=== PATIENT | male | born 1965 | race Asian ===

== ENCOUNTER 2017-01-19 09:15 | Inpatient (IN) | payer OTHER ==
--- NOTE | 2017-01-18 20:18 | NUR ---
SPOKE WITH DR MICHAEL PERDOMO VIA PHONE. REPORTED A CRITICAL VALUE OF TROPONIN. NO NEW ORDERS MADE. Addendum: 01/20/17 at 0147 by Curtis Nunez RN WRONG DATE. CORRECTION 01/19/17 AT 2018
[~2017-01-19] VITALS: Ht 180.3 cm; Wt 78.9 kg
[~2017-01-19 09:15] MED LIST: ASPI81CT89 PO; ATOR20TA PO; CARV12.52 PO; CEFT1PDS43 IV; FURO-572 PO; GLIP5TAB4 PO; INSU100S45 SUBQ; MAGN400T11 PO; MIRT15TA PO; SACC250C1 PO; SITA25TA3 PO; SPIR25TA PO; ZOLP10TA1 PO; [UNRECOGNIZED DRUG - CODE] PO
[2017-01-19 09:32] VITALS: BP 153/87
--- NOTE | 2017-01-19 09:49 | NUR ---
TO CXR VIA WHEEL CHAIR
[2017-01-19 10:06] LABS: BASOPHILS # (AUTO) 0.1 K/uL (0.00-0.22); BASOPHILS % (AUTO) 1.2 % (0.0-2.0); EOSINOPHILS # (AUTO) 0.5 K/uL (0-0.4); HEMATOCRIT 40.5 % (36-52); HEMOGLOBIN 13.4 g/dL (12.0-18.0); LYMPHOCYTES # (AUTO) 1.6 K/uL (2.0-11.5); LYMPHOCYTES % (AUTO) 14.8 % (20.5-51.1); MEAN CORPUSCULAR HEMOGLOBIN 28 pg (27-31); MEAN CORPUSCULAR HGB CONC 33 g/dL (33-37); MEAN CORPUSCULAR VOLUME 85 fL (80-94); MONOCYTES % (AUTO) 9.3 % (1.7-9.3); NEUTROPHILS # (AUTO) 7.5 K/uL (1.8-7.7); NEUTROPHILS % (AUTO) 69.7 % (42.2-75.2); PLATELET COUNT (AUTO) 252 K/uL (140-450); RED BLOOD CELL COUNT(AUTO) 4.76 MIL/uL (4.20-6.10); RED CELL DISTRIBUTION WIDTH 13.7 % (11.6-13.7); WHITE BLOOD COUNT (AUTO) 10.7 K/uL (4.8-10.8)
--- NOTE | 2017-01-19 10:10 | NUR ---
51/M BIB HERE FOR C/O CHRONIC INTERMITTENT SWELLING AND SOB X 3 DAYS. WORSENING LAST NIGHT. HX CAD, KIDNEY FAILURE STAGE 2-3, HTN, DM. PT HAS INTERNAL CARDIAC DEFIB. PT ON RX LASIX, HYDRALAZINE, ASPIRIN, CARVEDILOL, ASTORVASTATIN, INSULIN SLIDING SCALE. PT APPEARS PALEM WITH GENERALIZED WEAKNES. PT AAOX4. ER MD MADE AWARE. IV PLACED IN TRAIGE.
[2017-01-19 10:31] LABS: PARTIAL THROMBOPLASTIN TIME 28.5 secs (22-35.6); PROTHROMBIN TIME 9.8 secs (10.8-13.4)
--- NOTE | 2017-01-19 10:33 | NUR ---
Patient being evaluated by physician at bedside.
[2017-01-19] MEDS ORDERED: ALBUTEROL SULFATE/IPRATROPIU 3 ML SOL IH ONE (10:50)
[2017-01-19 10:51] LABS: ANION GAP 13.2 (8-16); CALCIUM 8.6 mg/dL (8.5-10.1); CARBON DIOXIDE 24.8 mmol/L (21-32)
[2017-01-19 10:53] LABS: ALBUMIN 2.6 g/dL (3.4-5.0); CREATININE 3.8 mg/dL (0.6-1.3); TOTAL BILIRUBIN 0.3 mg/dL (0.0-1.0); TOTAL PROTEIN, SERUM 6.5 g/dL (6.4-8.2)
--- NOTE | 2017-01-19 11:04 | NUR ---
RECEIVED CALL FROM LAB, TROPONIN 0.129. ER MD MADE AWARE. NEW ORDERS TO FOLLOW. PT FOR ADMIT.
[2017-01-19 11:12] LABS: TOTAL BILIRUBIN 0.3 mg/dL (0.0-1.0)
[2017-01-19 11:13] LABS: BILIRUBIN,DIRECT 0.1 mg/dL (0.0-0.3)
[2017-01-19 11:14] LABS: ALBUMIN 2.7 g/dL (3.4-5.0); TOTAL PROTEIN, SERUM 6.8 g/dL (6.4-8.2)
[2017-01-19] MEDS ORDERED: HYDROcodone/APAP 7.5/325 MG 1 TAB PO PRN (11:35)
[2017-01-19] MEDS ORDERED: ONDANSETRON 4 MG/2 ML VIAL IVP PRN (11:35)
[2017-01-19] MEDS ORDERED: ACETAMINOPHEN 325 MG TAB PO PRN (11:35)
--- NOTE | 2017-01-19 11:40 | NUR ---
PT VOID IN URINAL FOR SAMPLE.
--- NOTE | 2017-01-19 11:53 | NUR ---
Patient will be admitted to care of DR. SANCHEZ. Admited to TELE. Will go to room 125-B. Belongings list completed. Report to QUINTON RAVI.
--- NOTE | 2017-01-19 12:00 | NUR ---
RECEIVED PT FROM ER. WITH LIBERTY. ALERT, AWAKE ORIENTEDX4. NO SOB NOTED INITIAL VITAL SIGNS FOLLOWS BP 115/80 HR 103 RR 18 02 SAT 99% AT 2LPM NC. DENIES ANY PAIN OR DISCOMFORT AT THIS TIME.GENERALIZED SWELLING NOTED ON PT. PT AMBULATORY. SAFETY PRECAUTION IN PLACE. CALL LIGHT WITHIN REACH.
[2017-01-19 12:19] LABS: FREE T4 (FREE THYROXINE) 0.99 ng/dL (0.76-1.46); PHOSPHORUS 5.2 mg/dL (2.5-4.9)
[2017-01-19 12:47] LABS: APPEARANCE,URINE HAZY (CLEAR); BILIRUBIN,URINE NEGATIVE (NEGATIVE); BLOOD, URINE 1+ (NEGATIVE); COLOR,URINE YELLOW (YELLOW); LEUKOCYTE ESTERASE ,URINE NEGATIVE (NEGATIVE); NITRITE, URINE NEGATIVE (NEGATIVE); PH,URINE 5.5 (5.0-9.0); PROTEIN,URINE 3+ (NEGATIVE); UGLUCOSE 3+ (NEGATIVE); UROBILINOGEN,URINE 0.2 EU/dL (0.2 - 1)
[2017-01-19 14:30] LABS: RBC,URINE 3-10 (FEW) /HPF (0-5)
[2017-01-19] MEDS ORDERED: DEXTROSE 50% 50 ML SYR IVP PRN (14:30)
[2017-01-19 14:31] LABS: BACTERIA,URINE 1-9 (FEW) /HPF (None Seen); SQUAMOUS EPITHELIAL CELL,UR 0-3 (FEW) /LPF (0-3 (FEW))
[2017-01-19] MEDS: NACL 0.9% 1,000 ML IV SCH (14:37)
[2017-01-19] MEDS: FUROSEMIDE 40 MG/4 ML VIAL IVP SCH (14:38)
[2017-01-19 15:49] LABS: THYROID STIMULATING HORMONE 4.8 uIU/mL (0.34-3.76)
[2017-01-19 16:00] VITALS: BP 145/93
--- NOTE | 2017-01-19 16:23 | NUR ---
WHIT FROM ULTRASOUND DEPT CALLED. PT WILL BE ON NPO UNTIL 9PM FOR THE ULTRASOUND OF ABDOMEN. WILL HOLD DINNER.
[2017-01-19] MEDS: glipiZIDE 5 MG TAB PO SCH (16:30)
[2017-01-19] MEDS: BLOOD GLUCOSE MONITORING 1 DEV DEV FS SCH ×2 (17:17→21:24)
[2017-01-19] MEDS: hydrALAZINE 25 MG TAB PO SCH (17:28)
--- NOTE | 2017-01-19 19:25 | NUR ---
RECEIVED REPORT FROM DAY SHIFT. PT IS AAOX4, DENIES PAIN AT THIS TIME. ON ROOM AIR, HAS NO S/S OF RESPIRATORY DISTRESS/DISCOMFORT NOTED. IV SITE IS PATENT AND INTACT. PLAN OF CARE DISCUSSED, VERBALIZED UNDERSTANDING. SAFETY MEASURES CHECKED, CALL LIGHT WITHIN REACH. WILL CONTINUE TO MONITOR.
--- NOTE | 2017-01-19 19:25 | NUR ---
PT KEPT CLEAN, DRY AND COMFORTABLE, NEEDS ATTENDED, ENDORSED TO THE NEXT SHIFT FOR CONTINUITY OF CARE. NIGHT NURSE MADE AWARE OF THE DINNER ON HOLD THAT WAS PLACED ON TOP OF THE FRIDGE TO BE GIVEN TO PT AFTER THE PROCEDURE. ENDORSED TO FOLLOW UP WITH LIAM FROM THE RADIOLOGY DEPT. PT ON STABLE CONDITION, DENIES ANY PAIN OR DISCOMFORT AT THIS TIME. NO SOB NOTED.
[2017-01-19 20:00] VITALS: BP 141/95
--- NOTE | 2017-01-19 20:12 | NUR ---
RECEIVED A CRITICAL VALUE TROPONIN LEVEL OF 0.361, PAGED DR. MICHAEL PERDOMO, WAITING FOR CALL BACK.
--- NOTE | 2017-01-19 20:18 | NUR ---
SPOKE WITH DR MICHAEL PERDOMO VIA PHONE. REPORTED A CRITICAL VALUE OF TROPONIN. NO NEW ORDERS MADE.
[2017-01-19] MEDS: DOCUSATE SODIUM 100 MG GELCAP PO SCH (21:25)
[2017-01-19] MEDS: CARVEDILOL 12.5 MG TAB PO SCH (21:25)
[2017-01-19] MEDS: ATORVASTATIN 20 MG TAB PO SCH (21:25)
--- NOTE | 2017-01-19 21:29 | NUR ---
RADIOLOGIST AT BEDSIDE AT THIS TIME FOR PROCEDURE.
[2017-01-20] VITALS: BP 117/80
--- NOTE | 2017-01-20 | NUR ---
V/S CHECKED AND STABLE. ON ROOM AIR, HAS NO S/S OF RESPIRATORY DISTRESS/DISCOMFORT NOTED. IV FLUID IS INFUSING WELL.
--- NOTE | 2017-01-20 02:37 | NUR ---
EYES CLOSED, BREATHING EVEN AND UNLABORED. CALL LIGHT WITHIN REACH.
[2017-01-20 04:00] VITALS: BP 127/85
--- NOTE | 2017-01-20 04:00 | NUR ---
PT SLEEPING AROUSABLE BY NAME. V/S CHECKED AND STABLE. BREATHING EVEN AND UNLABORED. SAT 02= 94%. IVF INFUSING WELL. CALL LIGHT WITHIN REACH.
--- NOTE | 2017-01-20 04:42 | NUR ---
SPOKE WITH DR PERDOMO VIA PHONE. CLARIFIED TROPONIN ORDER AND MD SAID OK TO CHANGE THE ORDER TIME.
--- NOTE | 2017-01-20 06:19 | NUR ---
BLOOD SUGAR CHECKED. BSL= 215, WILL ADMINISTER INSULIN COVERAGE.
[2017-01-20] MEDS: BLOOD GLUCOSE MONITORING 1 DEV DEV FS SCH ×4 (06:23→21:17)
[2017-01-20 06:31] LABS: BASOPHILS # (AUTO) 0.1 K/uL (0.00-0.22); BASOPHILS % (AUTO) 1.4 % (0.0-2.0); EOSINOPHILS # (AUTO) 0.4 K/uL (0-0.4); EOSINOPHILS % (AUTO) 5.2 % (0.0-4.0); HEMATOCRIT 35.5 % (36-52); HEMOGLOBIN 11.8 g/dL (12.0-18.0); LYMPHOCYTES # (AUTO) 1.8 K/uL (2.0-11.5); LYMPHOCYTES % (AUTO) 22.1 % (20.5-51.1); MEAN CORPUSCULAR HEMOGLOBIN 28 pg (27-31); MEAN CORPUSCULAR HGB CONC 33 g/dL (33-37); MEAN CORPUSCULAR VOLUME 85 fL (80-94); MONOCYTES # (AUTO) 0.8 K/uL (0.8-1.0); MONOCYTES % (AUTO) 9.6 % (1.7-9.3); NEUTROPHILS # (AUTO) 5.2 K/uL (1.8-7.7); NEUTROPHILS % (AUTO) 61.7 % (42.2-75.2); PLATELET COUNT (AUTO) 214 K/uL (140-450); RED BLOOD CELL COUNT(AUTO) 4.16 MIL/uL (4.20-6.10); RED CELL DISTRIBUTION WIDTH 13.8 % (11.6-13.7); WHITE BLOOD COUNT (AUTO) 8.3 K/uL (4.8-10.8)
[2017-01-20] MEDS: glipiZIDE 5 MG TAB PO SCH ×2 (06:33→16:35)
[2017-01-20] MEDS: INSULIN LISPRO SLIDING SCALE 100 UNITS/ML VIAL SUBQ PRN ×3 (06:35→21:21)
[2017-01-20 06:55] LABS: MAGNESIUM 1.9 mg/dL (1.8-2.4); PHOSPHORUS 4.6 mg/dL (2.5-4.9)
[2017-01-20 07:12] LABS: ANION GAP 10.4 (8-16); CALCIUM 8.2 mg/dL (8.5-10.1); CREATININE 3.9 mg/dL (0.6-1.3); POTASSIUM 4.4 mmol/L (3.5-5.1)
--- NOTE | 2017-01-20 07:15 | NUR ---
RECEIVED PATIENT REPORT AT BEDSIDE. PATIENT AWAKE ALERT AND ORIENTED. NO S/S OF DISTRESS NOTED. NO C/O OF PAIN AT THIS TIME. PATIENT ON TELE MONITORING. BED LOWERED WITH CALL LIGHT WITHIN REACH. WILL CONTINUE TO MONITOR
--- NOTE | 2017-01-20 07:36 | NUR ---
ENDORSED PT TO DAY SHIFT NURSE. PT IN STABLE CONDITION.
[2017-01-20] MEDS ORDERED: ALBUTEROL SULFATE/IPRATROPIU 3 ML SOL IH PRN (07:55)
[2017-01-20 08:00] VITALS: BP 134/73
--- NOTE | 2017-01-20 09:35 | NUR ---
PATIENT RESTING COMFORTABLY IN BED. NO S/S OF DISTRESS NOTED
[2017-01-20] MEDS: hydrALAZINE 25 MG TAB PO SCH ×3 (09:42→16:35)
[2017-01-20] MEDS: CARVEDILOL 12.5 MG TAB PO SCH ×2 (09:42→21:17)
[2017-01-20] MEDS: ASPIRIN 81 MG TAB.CHEW PO SCH (09:42)
[2017-01-20] MEDS: DOCUSATE SODIUM 100 MG GELCAP PO SCH ×2 (09:42→21:18)
[2017-01-20] MEDS: MAGNESIUM OXIDE 400 MG TAB PO SCH (09:42)
[2017-01-20] MEDS: FUROSEMIDE 40 MG/4 ML VIAL IVP SCH ×2 (09:43→12:44)
[2017-01-20] MEDS: DIGOXIN 0.125 MG TAB PO SCH (09:43)
[2017-01-20] MEDS: PANTOPRAZOLE 40 MG INJ VIAL IVP SCH (09:43)
[2017-01-20] MEDS: INSULIN DETEMIR 100 UNITS/ML 10 ML VIAL SUBQ SCH (09:46)
[2017-01-20] MEDS: NACL 0.9% 1,000 ML IV SCH (11:35)
[2017-01-20 12:00] VITALS: BP 125/74
--- NOTE | 2017-01-20 12:05 | NUR ---
01/20/17 RD INITIAL ASSESSMENT COMPLETED PLEASE REFER TO NUTRITION ASSESSMENT UNDER CARE ACTIVITY FOR ESTIMATED NUTRITIONAL NEEDS. RD RECOMMENDATIONS: 1. CONTINUE ON CCHO 60 GM, RENAL 60 GM PRO DIET TOLERATED. 2. ENCOURAGE INCREASED PO INTAKES. 3. RD PROVIDED PT WITH RENAL EDUCATION. 4. RD WILL F/U 3-5 DAYS; MODERATE RISK. NILSON PISANO RD
[2017-01-20] MEDS: ALBUTEROL SULFATE/IPRATROPIU 3 ML SOL IH SCH ×2 (13:42→20:21)
--- NOTE | 2017-01-20 14:30 | NUR ---
PATIENT AMBULATING AROUND THE UNIT. NO S/S OF DISTRESS NOTED
[2017-01-20 16:00] VITALS: BP 128/75
--- NOTE | 2017-01-20 19:30 | NUR ---
REPORT GIVEN AT BEDSIDE. PATIENT ENDORSED IN STABLE CONDITION
--- NOTE | 2017-01-20 19:30 | NUR ---
RECEIVED PATIENT REPORT FROM MORNING SHIFT AT BEDSIDE. PATIENT AAOX4, ABLE TO FOLLOW COMMANDS AND MAKE NEEDS KNOWN. DENIES PAIN, NO S/S OF SOB/DISTRESS, BREATHING EVEN AND UNLABORED, CRACKLES LUNG SOUND BL. TELE MONITOR WITH SR, +1 PITTING EDEMA TO BLE, SOFT ABDOMEN WITH ACTIVE BOWEL SOUNDS, AFEBRILE, SKIN IS INTACT, WARM AND DRY TO TOUCH, CONTINENT, AMBULATORY WITH STEADY GAIT. SAFETY MEASURES MAINTAINED, CALL LIGHT WITHIN REACH, WILL CONTINUE TO MONITOR
[2017-01-20 20:00] VITALS: BP 125/87
--- NOTE | 2017-01-20 21:00 | NUR ---
ACCU CHECK PERFORMED WITH RESULT 171MG/DL, 2UNITS OF INSULIN GIVEN, SCHEDULED MEDICATION GIVEN, PT TOLERATED WELL. MEDICATION TEACHING PROVIDED, PT VERBALIZED UNDERSTANDING IT.
[2017-01-20] MEDS: ATORVASTATIN 20 MG TAB PO SCH (21:17)
[2017-01-21] VITALS: BP 118/72
--- NOTE | 2017-01-21 | NUR ---
PT IS ASLEEP QUIETLY IN BED, VSS.
[2017-01-21] MEDS: ALBUTEROL SULFATE/IPRATROPIU 3 ML SOL IH SCH ×3 (01:00→13:00)
--- NOTE | 2017-01-21 01:45 | NUR ---
PT AWAKE BUT DOES NOT WANT HHN TX. STATES HE FEELS FINE, NO DISTRESS/SOB/WHEEZING NOTED AT THIS TIME. INFORMED PT TO CALL IF TX NEEDED.
[2017-01-21 04:00] VITALS: BP 126/75
--- NOTE | 2017-01-21 04:00 | NUR ---
PT IS AWAKE, STATED COULD NOT SLEEP AGAIN, VSS.
[2017-01-21 06:41] LABS: BASOPHILS # (AUTO) 0.1 K/uL (0.00-0.22); BASOPHILS % (AUTO) 1.4 % (0.0-2.0); EOSINOPHILS # (AUTO) 0.5 K/uL (0-0.4); EOSINOPHILS % (AUTO) 4.8 % (0.0-4.0); HEMATOCRIT 34.9 % (36-52); HEMOGLOBIN 11.5 g/dL (12.0-18.0); LYMPHOCYTES # (AUTO) 1.9 K/uL (2.0-11.5); LYMPHOCYTES % (AUTO) 20.2 % (20.5-51.1); MEAN CORPUSCULAR HEMOGLOBIN 28 pg (27-31); MEAN CORPUSCULAR HGB CONC 33 g/dL (33-37); MEAN CORPUSCULAR VOLUME 86 fL (80-94); MONOCYTES # (AUTO) 0.9 K/uL (0.8-1.0); MONOCYTES % (AUTO) 9.3 % (1.7-9.3); NEUTROPHILS # (AUTO) 6.2 K/uL (1.8-7.7); NEUTROPHILS % (AUTO) 64.3 % (42.2-75.2); PLATELET COUNT (AUTO) 215 K/uL (140-450); RED BLOOD CELL COUNT(AUTO) 4.07 MIL/uL (4.20-6.10); RED CELL DISTRIBUTION WIDTH 13.8 % (11.6-13.7); WHITE BLOOD COUNT (AUTO) 9.6 K/uL (4.8-10.8)
[2017-01-21] MEDS: BLOOD GLUCOSE MONITORING 1 DEV DEV FS SCH ×2 (06:45→12:05)
[2017-01-21 07:01] LABS: ANION GAP 11.5 (8-16); CALCIUM 8.3 mg/dL (8.5-10.1); CARBON DIOXIDE 27.1 mmol/L (21-32); POTASSIUM 4.6 mmol/L (3.5-5.1)
--- NOTE | 2017-01-21 07:05 | NUR ---
RECEIVED CRITICAL LAB REPORT OF BUN 70 CREATINE 3.7, WILL ENDORSE TO MORNING SHIFT NURSE TO F/U WITH . Addendum: 01/21/17 at 0721 by Kameron Bowen RN BUN 73, CREATINE 4.3, CALLED DR. PERKINS, NO NEW ORDER AT THIS TIME.
--- NOTE | 2017-01-21 07:10 | NUR ---
RECEIVED PATIENT REPORT. PATIENT AWAKE, ALERT AND ORIENTED. PATIENT BREATHING ON ROOM AIR. NO S/S OF DISTRESS NOTED. NO C/O OF PAIN AT THIS TIME. PATIENT ON TELE MONITORING. BED LOWERED WITH CALL LIGHT WITHIN REACH. WILL CONTINUE TO MONITOR
--- NOTE | 2017-01-21 07:11 | NUR ---
REPORT GIVEN TO MORNING SHIFT NURSE FOR CONTINUE OF CARE, PT IS IN STABLE CONDITION AT THIS TIME.
[2017-01-21 07:14] LABS: CREATININE 4.2 mg/dL (0.6-1.3); DIGOXIN 0.27 ng/mL (0.80-2.00); MAGNESIUM 2.1 mg/dL (1.8-2.4); PHOSPHORUS 5.4 mg/dL (2.5-4.9)
[2017-01-21 08:00] VITALS: BP 132/95
[2017-01-21] MEDS: glipiZIDE 5 MG TAB PO SCH (08:24)
[2017-01-21] MEDS: DOCUSATE SODIUM 100 MG GELCAP PO SCH (08:24)
[2017-01-21] MEDS: ASPIRIN 81 MG TAB.CHEW PO SCH (08:24)
[2017-01-21] MEDS: DIGOXIN 0.125 MG TAB PO SCH (08:25)
[2017-01-21] MEDS: hydrALAZINE 25 MG TAB PO SCH ×2 (08:25→12:14)
[2017-01-21] MEDS: CARVEDILOL 12.5 MG TAB PO SCH (08:26)
[2017-01-21] MEDS: MAGNESIUM OXIDE 400 MG TAB PO SCH (08:26)
[2017-01-21] MEDS: PANTOPRAZOLE 40 MG INJ VIAL IVP SCH (08:26)
[2017-01-21] MEDS: FUROSEMIDE 40 MG/4 ML VIAL IVP SCH ×2 (08:26→12:14)
[2017-01-21] MEDS: INSULIN DETEMIR 100 UNITS/ML 10 ML VIAL SUBQ SCH (08:28)
[2017-01-21] MEDS ORDERED: SPIRONOLACTONE 25 MG TAB PO SCH (09:00)
--- NOTE | 2017-01-21 10:22 | NUR ---
PATIENT ASLEEP IN BED. NO S/S OF DISTRESS NOTED
[2017-01-21] MEDS: NACL 0.9% 1,000 ML IV SCH (11:35)
[2017-01-21 12:00] VITALS: BP 127/79
[2017-01-21] MEDS: INSULIN LISPRO SLIDING SCALE 100 UNITS/ML VIAL SUBQ PRN (12:12)
[2017-01-21] MEDS ORDERED: BLOO1STR10 FS (14:30)
[2017-01-21] MEDS ORDERED: DIGO0.1211 PO (14:30)
[2017-01-21] MEDS ORDERED: HUMSLIDE SUBQ (14:30)
[2017-01-21] MEDS ORDERED: LEVEMIR SUBQ (14:30)
[2017-01-21] MEDS ORDERED: [UNRECOGNIZED DRUG - CODE] PO (14:30)
[2017-01-21] MEDS ORDERED: FURO-570 PO (14:30)
[2017-01-21] MEDS ORDERED: PHO667 PO (14:44)
--- NOTE | 2017-01-21 14:59 | NUR ---
PATIENT DISCHARGED TO HOME. DISCHARGE INSTRUCTIONS AND DISCHARGE PRESCRIPTION GIVEN. PATIENT VERBALIZED UNDERSTANDING. IV LINE DISCONTINUED. TELE LEADS TAKEN OFF. PATIENT SIGNED ALL HIS DISCHARGE PAPERS. PATIENT LEFT WITH ALL HIS DISCHARGE PAPERS AND BELONGINGS. PATIENT LEFT IN STABLE CONDITION
== END 2017-01-21 15:03 | disposition home or self-care (01) | DRG 291 ==
LOC: MED 09:15 → MMU 11:51
PROVIDERS: ADMIT Family Medicine; ATTEND Family Medicine
DX: I13.0 Hypertensive heart and chronic kidney disease with heart failure and stage 1 through stage 4 chronic kidney disease, or unspecified chronic kidney disease (principal); N17.0 Acute kidney failure with tubular necrosis; I50.43 Acute on chronic combined systolic (congestive) and diastolic (congestive) heart failure; E43 Unspecified severe protein-calorie malnutrition; N18.4 Chronic kidney disease, stage 4 (severe); I42.0 Dilated cardiomyopathy; R74.0 Nonspecific elevation of levels of transaminase and lactic acid dehydrogenase [LDH]; I25.10 Atherosclerotic heart disease of native coronary artery without angina pectoris; E02 Subclinical iodine-deficiency hypothyroidism; E83.39 Other disorders of phosphorus metabolism; E78.1 Pure hyperglyceridemia; I10 Essential (primary) hypertension; E11.22 Type 2 diabetes mellitus with diabetic chronic kidney disease; E11.65 Type 2 diabetes mellitus with hyperglycemia; D64.9 Anemia, unspecified; M62.50 Muscle wasting and atrophy, not elsewhere classified, unspecified site; E78.5 Hyperlipidemia, unspecified; Z86.73 Personal history of transient ischemic attack (TIA), and cerebral infarction without residual deficits; Z95.0 Presence of cardiac pacemaker; Z90.49 Acquired absence of other specified parts of digestive tract; Z83.3 Family history of diabetes mellitus; Z82.3 Family history of stroke; Z82.49 Family history of ischemic heart disease and other diseases of the circulatory system; Z68.24 Body mass index [BMI] 24.0-24.9, adult; Z84.2 Family history of other diseases of the genitourinary system; Z87.891 Personal history of nicotine dependence; Z95.810 Presence of automatic (implantable) cardiac defibrillator
CPT/HCPCS: 36415; 71020; 76705; 80048; 80053; 80076; 80162; 81001; 82150; 82948; 83036; 83690; 83735; 83880; 84100; 84439; 84443; 84484; 85025; 85610; 85730; 87081; 87086; 93005; 94640; 99285; C9113; J1644; J1815; J1940; J7030; J7620; Q0092

== ENCOUNTER 2017-06-26 15:35 | Outpatient (CLI) | payer OTHER ==
[~2017-06-26 15:35] MED LIST changes: +BLOO1STR10 FS; -CEFT1PDS43 IV; +DIGO0.1211 PO; +FURO-570 PO; -FURO-572 PO; +HUMSLIDE SUBQ; +HYDR-4420 PO; +LEVEMIR SUBQ; -MIRT15TA PO; +PHO667 PO; -SACC250C1 PO; -[UNRECOGNIZED DRUG - CODE] PO
[2017-06-26 16:22] LABS: BASOPHILS # (AUTO) 0.1 K/uL (0.00-0.22); BASOPHILS % (AUTO) 1.9 % (0.0-2.0); EOSINOPHILS # (AUTO) 0.3 K/uL (0-0.4); EOSINOPHILS % (AUTO) 3.6 % (0.0-4.0); HEMATOCRIT 36.8 % (36-52); HEMOGLOBIN 12.2 g/dL (12.0-18.0); LYMPHOCYTES # (AUTO) 1.1 K/uL (2.0-11.5); LYMPHOCYTES % (AUTO) 14.7 % (20.5-51.1); MEAN CORPUSCULAR HEMOGLOBIN 30 pg (27-31); MEAN CORPUSCULAR HGB CONC 33 g/dL (33-37); MEAN CORPUSCULAR VOLUME 89 fL (80-94); MONOCYTES # (AUTO) 0.6 K/uL (0.8-1.0); MONOCYTES % (AUTO) 7.8 % (1.7-9.3); NEUTROPHILS # (AUTO) 5.2 K/uL (1.8-7.7); PLATELET COUNT (AUTO) 256 K/uL (140-450); RED BLOOD CELL COUNT(AUTO) 4.13 MIL/uL (4.20-6.10); RED CELL DISTRIBUTION WIDTH 13.7 % (11.6-13.7); WHITE BLOOD COUNT (AUTO) 7.3 K/uL (4.8-10.8)
[2017-06-26 16:37] LABS: ALBUMIN 2.8 g/dL (3.4-5.0); ANION GAP 11.8 (8-16); CARBON DIOXIDE 23.2 mmol/L (21-32); CHOL/HDL RATIO 2.5 (1-4.5); PHOSPHORUS 5.6 mg/dL (2.5-4.9); TOTAL BILIRUBIN 0.3 mg/dL (0.0-1.0)
[2017-06-26 16:43] LABS: APPEARANCE,URINE CLEAR (CLEAR); BILIRUBIN,URINE NEGATIVE (NEGATIVE); BLOOD, URINE 1+ (NEGATIVE); LEUKOCYTE ESTERASE ,URINE NEGATIVE (NEGATIVE); NITRITE, URINE NEGATIVE (NEGATIVE); PH,URINE 5.5 (5.0-9.0); UGLUCOSE TRACE (NEGATIVE)
[2017-06-26 16:44] LABS: COLOR,URINE STRAW (YELLOW)
[2017-06-26 16:52] LABS: CREATININE 5.3 mg/dL (0.7-1.3)
[2017-06-26 19:15] LABS: RBC,URINE 0-5 (RARE) /HPF (0-5); WBC,URINE 0-5 (RARE) /HPF (0-5)
[2017-06-26 19:41] LABS: COARSE GRANULAR CASTS,URINE 0-10 /LPF (None Seen)
[2017-06-26 22:55] LABS: URINE PROTEIN QUANT RANDOM 980.3 mg/dL (15-45)
== END 2017-06-26 20:57 | disposition home or self-care (01) ==
LOC: MLB 15:35
PROVIDERS: ATTEND Internal Medicine Geriatric Medicine
DX: E11.22 Type 2 diabetes mellitus with diabetic chronic kidney disease (principal); E11.21 Type 2 diabetes mellitus with diabetic nephropathy; N18.4 Chronic kidney disease, stage 4 (severe); I50.9 Heart failure, unspecified; E87.5 Hyperkalemia
CPT/HCPCS: 36415; 80053; 81001; 82306; 82570; 83036; 83874; 84100; 84157; 85025; 87086

== ENCOUNTER 2017-08-11 17:16 | Emergency (ER) | payer OTHER ==
[~2017-08-11] VITALS: Ht 172.7 cm; Wt 77.2 kg
[~2017-08-11 17:16] MED LIST changes: -BLOO1STR10 FS; +BLOO1STR56 FS
[2017-08-11 17:29] VITALS: BP 147/88
--- NOTE | 2017-08-11 17:33 | NUR ---
Patient to bed 04.
--- NOTE | 2017-08-11 17:41 | NUR ---
Patient being evaluated by Dr. Esqueda at bedside.
[2017-08-11] MEDS ORDERED: FLUORESCEIN OPTH STRIP 1 MG OP ONE (17:45)
[2017-08-11] MEDS ORDERED: TETRACAINE HCL/PF 0.5% OPTH 4 ML BTL OP ONE (17:45)
--- NOTE | 2017-08-11 17:45 | NUR ---
52/M c/o left eye pain and watery discharge since this afternoon. Pt states he went to see his eye doctor this afternoon. Eye appears red, and tearing. AOX4. VSS.
[2017-08-11 18:15] VITALS: BP 147/88
--- NOTE | 2017-08-11 18:15 | NUR ---
Patient discharged with v/s stable. Written and verbal after care instructions given and explained. Patient alert, oriented and verbalized understanding of instructions. Ambulatory with steady gait. All questions addressed prior to discharge. ID band removed. Patient advised to follow up with PMD. Rx of Tobramycin 0.3% and Tylenol with codeine #3 given. Patient educated on indication of medication including possible reaction and side effects. Opportunity to ask questions provided and answered.
== END 2017-08-11 18:15 | disposition home or self-care (01) ==
LOC: MED 17:16
DX: S05.02XA Injury of conjunctiva and corneal abrasion without foreign body, left eye, initial encounter (principal); Z86.73 Personal history of transient ischemic attack (TIA), and cerebral infarction without residual deficits; E11.9 Type 2 diabetes mellitus without complications; I10 Essential (primary) hypertension; Z95.5 Presence of coronary angioplasty implant and graft; X58.XXXA Exposure to other specified factors, initial encounter; Y93.89 Activity, other specified; Y92.89 Other specified places as the place of occurrence of the external cause; Y99.8 Other external cause status
CPT/HCPCS: 82948; 99283